=== PATIENT | male | born 1970 | race Caucasian/White ===

== ENCOUNTER 2016-10-10 18:56 | Inpatient (IN) | payer BC, OTHER ==
--- NOTE | ~2016-10-10 | CN ---
Consultation Report [facility] [address] [place]. [address] NAME: KAREEM ARREDONDO : 72 STATUS : ADM IN PAT#: [id number] AGE: 46 ADM/REG DATE : 10/10/16 MR#: [id number] REPORT SERV DATE: 10/11/16 DICTATED BY: CIERRA WRIGHT DATE: 10/11/16 REPORT STATUS : Draft TRANSCRIBED BY: MODL DATE: 10/11/16 CONSULTATION DATE OF CONSULTATION: 10/11/2016 REASON FOR CONSULTATION: IDENTIFYING DATA: 1. PCP: [facility] but he is seeking his own primary care with Dr. Giancarlo Huntley. 2. Staking Engineer: Dr. Cruz Hays. 3. Orthopedist: In the past, Dr. Sterling Lutz as well as Dr. Rodger Vo and presently has an appointment to see Dr. Stanley Shepard for a right knee problem. 4. Urologist: Dr. Raffi Rapp. HISTORY OF PRESENT ILLNESS: This is a pleasant 46-year-old gentleman who is followed by Dr. Cruz Hays in Cardiology and [facility]. He is seeking a primary care physician and plans on seeing Dr. Giancarlo Huntley. He presents upon admission to Cardiology with three days of episodes of on and off chest pain and then, he had a prolonged episode at rest earlier today. The patient has a history of hypertension, chest pain, previous CABG, three-vessel surgery in [place] in 2013 as well as a PCI with drug-eluting stent in 03/[address] Hays at [facility]. The patient denies any exertional shortness of breath, but he states he does feel some shortness of breath with his substernal chest pressure. He denies palpitations. [facility] has been consulted to manage his diabetes. The patient presently is on a home regimen of metformin, and he states he never checks his blood sugars at home. The patient's history was obtained through interview with the patient coupled with review of [facility] records by consultants and old medical records. PAST MEDICAL HISTORY: 1. Migraine. 2. Hypertension. 3. Renal calculi. 4. Chest pain. 5. Diverticulosis. 6. Hyperlipidemia. 7. Diabetes, type 2. HOME MEDICATIONS: 1. Coreg 12.5 mg p.o. twice a day. 2. Tylenol p.m. two tablets p.o. at bedtime as needed p.r.n. for headache. 3. Neurontin 300 mg p.o. twice a day. 4. Imdur 30 mg p.o. every morning. 5. Prevacid 30 mg p.o. every morning. Consultation Report [address] [address] NAME: KAREEM ARREDONDO : 72 STATUS : ADM IN PAT#: [id number] AGE: 46 ADM/REG DATE : 10/10/16 MR#: [id number] REPORT SERV DATE: 10/11/16 DICTATED BY: CIERRA WRIGHT DATE: 10/11/16 REPORT STATUS : Draft TRANSCRIBED BY: EMILIA DATE: 10/11/16 6. Prinzide 20/12.5, which is lisinopril-hydrochlorothiazide combination, one tablet p.o. every morning. 7. Metformin extended release 500 mg tablet p.o. twice a day. 8. Nitrostat 0.4 mg sublingual p.r.n. chest pain. 9. Ranexa 500 mg p.o. twice a day. 10.Brilinta 90 mg p.o. twice a day. ALLERGIES: NO KNOWN ALLERGIES. SOCIAL HISTORY: The patient is for approximately 24 years and has two children. He was a previous smoker, quit in 2013, smoked for greater than 15 years. He lives in a mobile home. Alcohol use is rare. No illicit drug use. He is very active and does hike a good 10 to 12 miles. He presently has injured his right knee for which he is going to consult on right knee with Dr. Stanley Shepard. FAMILY HISTORY: Father had 3 or 4 stents at age 66. He had coronary artery disease, COPD, and is on home O2. Mother is a smoker, has COPD and coronary artery disease. He has one sister, who has hypertension. SURGICAL HISTORY: 1. ACL repair of the left knee. He states a good nine times or more. 2. Left rotator cuff repair in 2007. 3. CABG, three-vessels in 2013, which was done in [place]. 4. Left knee bone graft in 03/2011. 5. PCI with a drug-eluting stent in 03/[address] Hays at [facility]. 6. Lithotripsy for right renal calculi in 2009. 7. Cystoscopy with stent. REVIEW OF SYSTEMS: Negative other than what is in HPI. The patient states he has no shortness of breath. No nausea or vomiting. No abdominal pain. Displays no confusion or agitation. No fever. He does complain of dull aching substernal chest pain, which has been noticed since his admission for which Cardiology is consulting to see him for a.m. He will have an echo as well as a coronary arteriogram. PHYSICAL EXAMINATION: VITAL SIGNS: From today, blood pressure 132/88, respiratory rate 17, heart rate 82, temperature 97.5, O2 saturation 94% on room air. GENERAL: This is a very pleasant 46-year-old male, resting in bed. No acute distress, but he does state he has had aching mid sternal chest pain since arrival into the hospital. NEURO: His head is atraumatic, normocephalic. He is alert and oriented x3. Cranial nerves 2 through 12 are grossly intact. His mood is pleasant and appropriate. NECK: Neck is supple. Trachea is midline. No JVD noted. No obvious thyromegaly or lymphadenopathy. Consultation Report [address] [address] NAME: KAREEM ARREDONDO : 72 STATUS : ADM IN [facility]#: [id number] AGE: 46 ADM/REG DATE : 10/10/16 MR#: [id number] REPORT SERV DATE: 10/11/16 DICTATED BY: CIERRA WRIGHT DATE: 10/11/16 REPORT STATUS : Draft TRANSCRIBED BY: EMILIA DATE: 10/11/16 EENT: Sclerae are nonicteric. Pupils are equal, reactive to light. Nares are patent. Mucous membranes moist. Tongue is midline without deviation. Soft palate rises equally with phonation. CHEST: No pain with palpation. LUNGS: Clear to auscultation bilaterally. He has normal respiratory effort. No increased work of breathing with conversation. CARDIOVASCULAR: S1, S2. No obvious murmurs, rubs, or gallops. Rhythm on telemetry is regular rate and rhythm. Sinus rhythm with a rate at 73. ABDOMEN: Soft, nontender, has active bowel sounds. No palpable organomegaly. Last bowel movement was noted on 10/10/2016. EXTREMITIES: Pedal pulses are present. No calf tenderness. No edema. SKIN: Warm and dry. No unusual rashes or lesions. Normal color and turgor. PSYCH: The patient is pleasant and cooperative. Appropriate mood and affect. LABORATORY DATA: Sodium 136, potassium 3.8, chloride 101, BUN 13, creatinine 1.18, GFR 86, glucose 196, calcium 9.6, magnesium 2.1. White blood cell 11.6, hemoglobin 16.0, hematocrit 43.9, platelets 276. INR 1.0. Troponin was 0.20. His blood sugars checked today were 138 and 129. He had a PA and lateral chest x-ray ordered. On 10/10/2016, he had an EKG that showed normal sinus rhythm, nonspecific T-wave abnormality with a rate at 96 and an abnormal EKG. ASSESSMENT AND PLAN: 1. Diabetes, type 2. The patient is normally on metformin at home. He states he never checks his blood sugars. He has been managed previously by [facility] and he seeks a primary care physician, plans on seeing Dr. Giancarlo Huntley. He is n.p.o. after midnight for a.m. testing per Cardiology, after he will be placed on a diabetic cardiac 1800 ADA diet. We will have the music educator to talk with him regarding diet and monitoring and he actually needs meter and strips at home to test his blood sugars. We will continue his sliding scale insulin level 2 protocol with hypoglycemic protocol. His metformin is on hold. We will check a hemoglobin A1c with his a.m. labs. 2. Hypertension. The patient does have a history of coronary artery disease, previous stents, previous coronary artery bypass graft, three-vessel. His home medications and additional cardiac medications are per Cardiology. 3. Neuropathy. Aware. We will continue his Neurontin. 4. Gastroesophageal reflux disease. Aware. The patient's Prevacid is continued. 5. Labs: BMP, CBC, lipid panel, PTT, troponin, hemoglobin A1c. [facility] would like to thank you for this consultation. Please let us know if we can be of further assistance. MARIA DE JESUS Cierra Wright NP Consultation Report [facility] [address] [place]. [address] NAME: KAREEM ARREDONDO : 72 STATUS : ADM IN PAT#: [id number] AGE: 46 ADM/REG DATE : 10/10/16 MR#: [id number] REPORT SERV DATE: 10/11/16 DICTATED BY: CIERRA WRIGHT DATE: 10/11/16 REPORT STATUS : Draft TRANSCRIBED BY: MODL DATE: 10/11/16 / [id number] CC: Bulmaro Rowe M.D.
--- NOTE | ~2016-10-10 | HP ---
History And Physical [address] [place]. [address] NAME: KAREEM ARREDONDO : 72 STATUS : ADM IN [facility]#: [id number] AGE: 46 ADM/REG DATE : 10/10/16 MR#: [id number] REPORT SERV DATE: 10/11/16 DICTATED BY: MISA SALDIVAR DATE: 10/10/16 REPORT STATUS : Draft TRANSCRIBED BY: MODL DATE: 10/10/16 DATE OF ADMISSION: 10/10/2016 REFERRING REASON: Chest pain and elevated troponin. HISTORY OF PRESENT ILLNESS: This is a pleasant 46-year-old white gentleman, who is followed by Dr. Cruz Hays in Cardiology and also at the [facility]. He presented with three days episodes of on and off chest pain and one prolonged episode lasting several hours at rest earlier today. Dr. Hays reportedly asked the patient will be admitted to [facility], per Dr. Mariscal, who communicated with him. The patient still has some mild chest pain. He was started on intravenous heparin and nitro paste. He is a poor historian, but reportedly quit smoking several years ago. He underwent a three-vessel CABG in 2013 at [place] at the [facility]. He underwent a PCI to unknown vessel with two drug-eluting stents by Dr. Hays in March 2016 at [facility]. We have limited records here. The patient denies any exertional shortness of breath, but had some episodes of shortness of breath earlier today with substernal chest pressure. He also has pain radiating into the left shoulder. He denied any palpitations, syncope. He has his office type job. REVIEW OF SYSTEMS: The rest of review of system is negative. PAST MEDICAL HISTORY: 1. Coronary artery disease. Reported history of three-vessel CABG at [place] in 2013. 2. History of PCI to unknown vessel with drug-eluting stent in March [address] Hays at [place]. 3. Hypertension. 4. Hyperlipidemia. 5. Remote history of smoking dependency. 6. Nephrolithiasis. 7. History of preserved systolic function with EF 55% in 2010. 8. Diabetes mellitus. ALLERGIES: NO KNOWN DRUG ALLERGIES. SOCIAL HISTORY: The patient works in the office, a sedentary type job. He is . He quit smoking three years ago. He smoked for 20 years. He does not drink alcohol or using the street drugs. He is followed at [facility]. FAMILY HISTORY: Negative for sudden cardiac or premature coronary artery disease in family. HOME MEDICATIONS: Coreg 12.5 mg twice a day, Tylenol p.r.n., Neurontin 300 mg twice a day, Imdur 30 mg once a day, Prevacid 30 mg once a day, lisinopril with hydrochlorothiazide 20 mg/12.5 mg once a day, metformin 500 mg twice a day, nitroglycerin p.r.n., ranolazine 500 mg twice a day, and Brilinta 90 mg twice a day. History And Physical [address] [address] NAME: KAREEM ARREDONDO : 72 STATUS : ADM IN [facility]#: [id number] AGE: 46 ADM/REG DATE : 10/10/16 MR#: [id number] REPORT SERV DATE: 10/11/16 DICTATED BY: MISA SALDIVAR DATE: 10/10/16 REPORT STATUS : Draft TRANSCRIBED BY: EMILIA DATE: 10/10/16 PHYSICAL EXAMINATION: GEN - No acute distress. VITAL SIGNS: Blood pressure 109/76, heart rate 82, regular. HEENT - Pupils reactive to light and accommodation. Moist mucosa membrane. NECK: No JVD. Normal carotid upstroke. No carotid bruits. LUNGS: Decreased breath sounds observed, but no crackles. COR: Normal S1, S2. No S3 or S4. No significant rub or murmurs. ABD: Obese, distended, nontender. EXT: No edema. Pedal pulses strong and equal bilaterally. SKIN: Warm with normal turgor. MS - No kyphosis. NEURO/PSY - Alert and oriented. Nonfocal. DATA: Leukocytosis 11,000. Electrolytes within normal limits. Troponin 0.2. Electrocardiogram normal sinus rhythm 96 beats per minute with Q-waves in leads 3 and AVF. Possible old inferior OR. No acute ST-T changes. ASSESSMENT AND PLAN: 1. Continuous chest pain. Elevated troponin, likely acute coronary syndrome. 2. Known coronary artery disease. Reported history of triple-vessel bypass in 2013 and recent PCI at [place] and denies diabetes mellitus. 3. The patient wants to be full code. We will admit him to monitor bed. We will continue intravenous heparin, nitro paste, and ranolazine and beta blockers. We will proceed with coronary arteriogram in the morning. The risks and benefits explained to the patient. He agreed to proceed. We will also plan for echocardiogram. After he will be discharged to home, he will follow with Dr. Hays. ARIELLE/EMILIA Misa Saldivar M.D. / [id number] CC: Bulmaro Rowe M.D.
[2016-10-10 17:20] LABS: BASOPHILS 0.2 %; BASOPHILS ABSOLUTE 0.02 10/3/uL (0.0-0.16); EOSINOPHILS 1.1 %; EOSINOPHILS ABSOLUTE 0.13 10/3/uL (0.0-0.53); ER CBC TAT 0 Hrs 10 Mins; HEMATOCRIT 43.9 % (40.0-51.0); IMMATURE GRANULOCYTES 0.2 %; IMMATURE GRANULOCYTES ABSOLUTE 0.02 10/3/uL (0.0-0.11); LYMPHOCYTES 29.9 %; LYMPHOCYTES ABSOLUTE 3.45 10/3/uL (0.67-4.30); MEAN CORPUS HGB CONC 36.4 g/dL (32.0-36.0); MEAN CORPUSCULAR HEMOGLOB 30.9 pg (26.0-34.0); MEAN CORPUSCULAR VOLUME 84.9 fL (80-100); MEAN PLATELET VOLUME 9.3 fL (9.2-13.0); MONOCYTES 5.9 %; MONOCYTES ABSOLUTE 0.68 10/3/uL (0.21-1.20); NEUTROPHILS 62.7 %; NEUTROPHILS ABSOLUTE 7.25 10/3/uL (2.02-8.40); PLATELET COUNT 276 10/3/uL (150-400); RBC DISTRIBUTION WIDTH 14.3 % (12.0-16.0); RED CELL COUNT 5.17 10/6/uL (4.7-6.1); WHITE BLOOD CELLS 11.6 10/3/uL (4.5-10.5)
[2016-10-10 17:21] LABS: MANUAL DIFF NO %
[2016-10-10 17:28] LABS: PARTIAL THROMBO TIME 31.9 SEC (22.5-37.2); PROTIME (NOT ORD) 12.6 SEC (12.0-14.5)
[2016-10-10 17:32] LABS: BUN (BLOOD UREA NITROGEN) 13 MG/DL (6-23); CALCIUM, SERUM 9.6 MG/DL (8.5-10.4); CHEST PAIN PROFILE TAT 0 Hrs 22 Mins; CHLORIDE, SERUM 101 MMOL/L (96-112); CREATININE 1.18 MG/DL (0.70-1.30); GFR AFRICAN AMERICAN 86 ML/MIN (>=60); GFR NON AFRICAN AMERICAN 74 ML/MIN (>=60); POTASSIUM, SERUM 3.8 MMOL/L (3.5-5.3); SODIUM, SERUM 136 MMOL/L (135-148)
[2016-10-10 17:40] LABS: CO2 (CARBON DIOXIDE) 30 MMOL/L (24-34); GLUCOSE, SERUM 196 MG/DL (60-99)
[~2016-10-10 18:56] MED LIST: HYZAAR1 TAB PO; LISINOPRIL40 MG PO; TYLOX1 CAP PO
[2016-10-10] MEDS ORDERED: BRILINTA90 MG PO (19:12)
[2016-10-10] MEDS ORDERED: PRINZIDE1 TA1 PO (19:13)
[2016-10-10] MEDS ORDERED: FORTAMET500 MG PO (19:14)
[2016-10-10] MEDS ORDERED: NEUR300 PO (19:15)
[2016-10-10] MEDS ORDERED: PREV30 PO (19:15)
[2016-10-10] MEDS ORDERED: TYLENOL PM PO (19:16)
[2016-10-10] MEDS ORDERED: NITROSTAT0.4 MG SL (19:17)
[2016-10-10] MEDS ORDERED: RAN500 PO (19:19)
[2016-10-10] MEDS ORDERED: IMDUR30 PO (19:20)
[2016-10-10] MEDS ORDERED: COREG25 PO (19:21)
[2016-10-11 05:24] LABS: BASOPHILS 0.3 %; BASOPHILS ABSOLUTE 0.03 10/3/uL (0.0-0.16); EOSINOPHILS 1.6 %; EOSINOPHILS ABSOLUTE 0.17 10/3/uL (0.0-0.53); HEMOGLOBIN 15.6 g/dL (13.6-17.8); IMMATURE GRANULOCYTES 0.4 %; IMMATURE GRANULOCYTES ABSOLUTE 0.04 10/3/uL (0.0-0.11); LYMPHOCYTES 44.2 %; LYMPHOCYTES ABSOLUTE 4.64 10/3/uL (0.67-4.30); MEAN CORPUS HGB CONC 35.5 g/dL (32.0-36.0); MEAN CORPUSCULAR VOLUME 84.6 fL (80-100); MEAN PLATELET VOLUME 9.3 fL (9.2-13.0); MONOCYTES 6.9 %; MONOCYTES ABSOLUTE 0.72 10/3/uL (0.21-1.20); NEUTROPHILS 46.6 %; PLATELET COUNT 247 10/3/uL (150-400); RBC DISTRIBUTION WIDTH 14.3 % (12.0-16.0); WHITE BLOOD CELLS 10.5 10/3/uL (4.5-10.5)
[2016-10-11 05:27] LABS: MANUAL DIFF NO %
[2016-10-11 05:51] LABS: BUN (BLOOD UREA NITROGEN) 14 MG/DL (6-23); CALCIUM, SERUM 9.8 MG/DL (8.5-10.4); CHLORIDE, SERUM 103 MMOL/L (96-112); CO2 (CARBON DIOXIDE) 26 MMOL/L (24-34); CREATININE 1.15 MG/DL (0.70-1.30); GFR AFRICAN AMERICAN 89 ML/MIN (>=60); GFR NON AFRICAN AMERICAN 76 ML/MIN (>=60); HDL CHOLESTEROL 38 MG/DL (> 39); SODIUM, SERUM 138 MMOL/L (135-148)
[2016-10-11 05:52] LABS: CHOL/HDL RATIO(NOT ORDER) 7.7 (0-5); CHOLESTEROL 293 MG/DL (< 200); GLUCOSE, SERUM 136 MG/DL (60-99); NON-HDL CHOLESTEROL 255 MG/DL (< 160); POTASSIUM, SERUM 4.1 MMOL/L (3.5-5.3); TRIGLYCERIDE 709 MG/DL (< 150); TROPONIN I 0.31 NG/ML (<0.05)
[2016-10-11 06:00] LABS: PARTIAL THROMBO TIME 47.3 SEC (22.5-37.2)
[2016-10-11 14:27] LABS: CK-MB 1.8 NG/ML; CPK 91 U/L (0-200)
[2016-10-12 04:05] LABS: BASOPHILS 0.2 %; BASOPHILS ABSOLUTE 0.02 10/3/uL (0.0-0.16); EOSINOPHILS ABSOLUTE 0.09 10/3/uL (0.0-0.53); HEMATOCRIT 41.2 % (40.0-51.0); HEMOGLOBIN 14.4 g/dL (13.6-17.8); IMMATURE GRANULOCYTES 0.3 %; IMMATURE GRANULOCYTES ABSOLUTE 0.03 10/3/uL (0.0-0.11); LYMPHOCYTES 28.8 %; LYMPHOCYTES ABSOLUTE 2.48 10/3/uL (0.67-4.30); MANUAL DIFF NO %; MEAN CORPUSCULAR HEMOGLOB 29.9 pg (26.0-34.0); MEAN CORPUSCULAR VOLUME 85.5 fL (80-100); MEAN PLATELET VOLUME 9.1 fL (9.2-13.0); MONOCYTES 7.1 %; MONOCYTES ABSOLUTE 0.61 10/3/uL (0.21-1.20); NEUTROPHILS 62.6 %; NEUTROPHILS ABSOLUTE 5.39 10/3/uL (2.02-8.40); PLATELET COUNT 210 10/3/uL (150-400); RBC DISTRIBUTION WIDTH 14.3 % (12.0-16.0); RED CELL COUNT 4.82 10/6/uL (4.7-6.1); WHITE BLOOD CELLS 8.6 10/3/uL (4.5-10.5)
[2016-10-12 04:26] LABS: BUN (BLOOD UREA NITROGEN) 15 MG/DL (6-23); CHLORIDE, SERUM 105 MMOL/L (96-112); CO2 (CARBON DIOXIDE) 26 MMOL/L (24-34); CPK 83 U/L (0-200); CREATININE 1.02 MG/DL (0.70-1.30); GFR AFRICAN AMERICAN 102 ML/MIN (>=60); GFR NON AFRICAN AMERICAN 88 ML/MIN (>=60); GLUCOSE, SERUM 122 MG/DL (60-99); POTASSIUM, SERUM 4.1 MMOL/L (3.5-5.3); SODIUM, SERUM 139 MMOL/L (135-148)
[2016-10-12 04:31] LABS: CK-MB 1.8 NG/ML
[2016-10-12] MEDS ORDERED: LIPITOR40 PO (11:59)
[2016-10-12] MEDS ORDERED: ASAB PO (11:59)
[2016-10-21] MEDS ORDERED: CELEXA10 PO (23:51)
[2016-10-21] MEDS ORDERED: COREG12 PO (23:52)
[2016-10-21] MEDS ORDERED: LIPITOR40 PO (23:52)
[2016-10-21] MEDS ORDERED: RAN500 PO (23:52)
[2016-10-21] MEDS ORDERED: TRICOR48 PO (23:52)
[2016-10-21] MEDS ORDERED: IMDUR30 PO (23:53)
[2016-10-21] MEDS ORDERED: PRINZIDE1 TA1 PO (23:53)
[2016-10-21] MEDS ORDERED: BRILINTA90 MG PO (23:54)
[2016-10-21] MEDS ORDERED: FORTAMET1000 MG PO (23:54)
[2016-10-21] MEDS ORDERED: NITROSTAT0.4 MG SL (23:55)
[2016-10-21] MEDS ORDERED: PREV30 PO (23:55)
[2016-10-21] MEDS ORDERED: HALF81 PO (23:55)
[2016-10-21] MEDS ORDERED: NEUR300 PO (23:55)
[2016-10-21] MEDS ORDERED: DEPO-MEDROL IJ (23:56)
== END 2016-10-12 12:30 | disposition home or self-care (01) | DRG 247 ==
LOC: ER 18:56 → 6NO 20:18 → SSU1 10-11 13:34
PROVIDERS: Hospitalist; Internal Medicine Cardiovascular Disease
PROC: 027036Z Dilation of Coronary Artery, One Artery with Three Drug-eluting Intraluminal Devices, Percutaneous Approach (ICD-10-PCS; principal; 2016-10-11)
PROC: B2151ZZ Fluoroscopy of Left Heart using Low Osmolar Contrast (ICD-10-PCS; 2016-10-11)
PROC: B2131ZZ Fluoroscopy of Multiple Coronary Artery Bypass Grafts using Low Osmolar Contrast (ICD-10-PCS; 2016-10-11)
PROC: B2181ZZ Fluoroscopy of Left Internal Mammary Bypass Graft using Low Osmolar Contrast (ICD-10-PCS; 2016-10-11)
PROC: B2111ZZ Fluoroscopy of Multiple Coronary Arteries using Low Osmolar Contrast (ICD-10-PCS; 2016-10-11)
PROC: 4A023N7 Measurement of Cardiac Sampling and Pressure, Left Heart, Percutaneous Approach (ICD-10-PCS; 2016-10-11)
DX: I21.4 Non-ST elevation (NSTEMI) myocardial infarction (principal); E11.42 Type 2 diabetes mellitus with diabetic polyneuropathy; I25.810 Atherosclerosis of coronary artery bypass graft(s) without angina pectoris; I25.10 Atherosclerotic heart disease of native coronary artery without angina pectoris; E78.5 Hyperlipidemia, unspecified; I10 Essential (primary) hypertension; K57.90 Diverticulosis of intestine, part unspecified, without perforation or abscess without bleeding; K21.9 Gastro-esophageal reflux disease without esophagitis; E78.00 Pure hypercholesterolemia, unspecified; Z95.1 Presence of aortocoronary bypass graft; Z95.5 Presence of coronary angioplasty implant and graft; Z87.442 Personal history of urinary calculi; Z87.891 Personal history of nicotine dependence; Z82.49 Family history of ischemic heart disease and other diseases of the circulatory system; Z82.5 Family history of asthma and other chronic lower respiratory diseases; Z98.890 Other specified postprocedural states
CPT/HCPCS: 71020; 80048; 80061; 82550; 82553; 82962; 83036; 83735; 84484; 85025; 85347; 85610; 85730; 93005; 93306; 93459; 96374; 99152; 99153; 99285; A9270-GY; C1725; C1760; C1769; C1874; C1887; C1894; C9604; J2250; J2405; J3010; Q9967